=== PATIENT | male | born 1990 | race Caucasian/White ===

== ENCOUNTER 2018-07-17 04:04 | Day surgery (SDC) | payer OTHER ==
[~2018-07-17] VITALS: Ht 177.8 cm; Wt 98.4 kg
[2018-07-17] VITALS (7 sets, daily range): BP systolic 113–129; BP diastolic 65–85
[~2018-07-17 04:04] MED LIST: FAMO20TA28 PO; FISH1CAP15 PO; MELA1TAB38; MULT1CAP59 PO; PRED20TA6 PO
[2018-07-17] MEDS ORDERED: ceFAZolin(*) 2GM/D5W 50ML 50 ML IVPB ONE (07:00)
[2018-07-17] MEDS: NORMOSOL R SOLN(*) 1000 ML BAG 1,000 ML IV PRN ×2 (09:36→13:29)
[2018-07-17] MEDS ORDERED: fentaNYL CITR 100 MCG/2 ML AMP ONE ×3 (10:04→12:43)
[2018-07-17] MEDS ORDERED: KETAMINE HCL 200 MG/20 ML MDV ONE (10:05)
[2018-07-17] MEDS ORDERED: DEXAMETHASONE SOD PHOS 10MG/ML ONE (10:06)
[2018-07-17] MEDS ORDERED: LIDOCAINE MPF 1% 5 ML VIAL ONE (10:06)
[2018-07-17] MEDS ORDERED: PROPOFOL EMUL(*) 10MG/ML 20 ML 20 ML ONE (10:06)
[2018-07-17] MEDS ORDERED: ONDANSETRON 4 MG/2 ML VIAL ONE ×2 (10:06→13:25)
[2018-07-17] MEDS ORDERED: LIDOCAINE/SOD BICARB 8.4% SYR ID ONE (10:30)
[2018-07-17] MEDS ORDERED: MIDAZOLAM 2 MG/2 ML VIAL IVP PRN (10:30)
[2018-07-17] MEDS ORDERED: FAMOTIDINE 20 MG TAB PO ONE (10:30)
[2018-07-17] MEDS ORDERED: OXYMETAZOLINE SPRAY 15 ML BTL ONE ×2 (11:31→11:35)
[2018-07-17] MEDS ORDERED: TRIAMCINOLONE ACE(*) 40 MG/ML 1 ML ONE (11:44)
[2018-07-17] MEDS ORDERED: AMOX500T10 PO (12:19)
[2018-07-17] MEDS ORDERED: OXYC-865 PO (12:20)
[2018-07-17] MEDS ORDERED: LIDO15SO2 PO (12:21)
[2018-07-17] MEDS ORDERED: oxyCODON/ACET (*)5/325MG (CII) 1 TAB TAB PO ONE ×2 (12:50→13:45)
--- NOTE | 2018-07-17 13:23 | NUR ---
1323 PT CALL LIGHT ON, PT STATES HE IS NAUSEOUS. PT FLUIDS TURNED UP AND A NEW BAG HUNG, PT OXYGEN INCREASED FROM 2L TO 3L FOR 10 MIN. PT MEDICATED W/ZOFRAN 4MG. 1336 PT STATES THAT HE FEELS LIKE HE NEEDS TO VOMIT 1338 PT VOMITS ABOUT 10 OZ BRIGHT RED SPUTUM 1340 PT STATES HE FEELS BETTER, SIPPING WATER
--- NOTE | 2018-07-17 14:24 | OPERATIVE REPORT 1 ---
EVENT DATE: July 17, 2018 SURGEON: Todd Cabello MD ANESTHESIOLOGIST: Ti Dunn MD ANESTHESIA: LMA. PROCEDURE PERFORMED Tonsillectomy. PREOPERATIVE DIAGNOSIS 1. Chronic tonsillitis. 2. Tonsillar hypertrophy. 3. Tonsillith. POSTOPERATIVE DIAGNOSIS 1. Chronic tonsillitis. 2. Tonsillar hypertrophy. 3. Tonsillith. INDICATIONS Please refer to the preoperative note. DESCRIPTION OF PROCEDURE The patient was positively identified in the preoperative area. He was accompanied there by his . Risks were again explained including, but not limited to, bleeding, infection and those associated with anesthesia. He acknowledged understanding those risks. He was then brought back to the operating suite, laid supine on the operating table and anesthesia was administered. Once asleep, the patient was positioned, prepped and draped in the usual sterile fashion. A McIvor Mouth Gag was placed in the patient's oral cavity. Red rubber catheter was placed through the right nostril and utilized to suspend the soft palate. The patient was noted to have 3+ tonsils bilaterally. The right tonsil was grasped with curved Allis forceps and carefully dissected from the lateral pharyngeal wall with suction Bovie electrocautery. In a similar fashion, the contralateral tonsil was removed. Hemostasis was obtained with suction Bovie electrocautery. The patient was then returned to Anesthesia for emergence. ESTIMATED BLOOD LOSS 50 cc. COMPLICATIONS No complications. MTDD
--- NOTE | 2018-07-17 15:31 | NUR ---
1350- SBAR RECEIVED FROM AMANDA VILLAGRAN. 1356- APPLESAUCE PROVIDED. 1406- PT. GIVEN PAIN MEDICATION. 1414- PT. O2 TURNED DOWN TO 1 LPM. 1426- PT. RETURNED TO ROOM AIR. AND STATES PAIN AT 5/10. 1440- DISCHARGE INSTRUCTIONS GONE OVER WITH PT AND HIS . 1455- ORTHOSTATICS PREFORMED. 1500- PT. GETTING DRESSED. 1505- PT. GIVEN ICE CHIPS. 1509- IV TAKEN OUT AND PRESSURE DRESSING APPLIED. 1512- PT. ACCOMPANIED OUT AMBULATORY BY LYDIA VILLAGRAN AND .
== END 2018-07-17 13:00 | disposition home or self-care (01) ==
LOC: OR 04:04
PROVIDERS: ATTEND Otolaryngology
DX: J35.01 Chronic tonsillitis (principal); J35.1 Hypertrophy of tonsils
CPT/HCPCS: 42826; 88304; J1100; J2001; J2405; J2704; J3010; J3301; J3490; J0690